=== PATIENT | female | born 1990 | race Hispanic/Latino ===

== ENCOUNTER 2016-12-28 09:38 | Inpatient (IN) | payer MEDICAID ==
[~2016-12-28] VITALS: Ht 132.1 cm; Wt 78.5 kg
[~2016-12-28 09:38] MED LIST: ASCO500T8 PO; Docusate Sodium PO; FERR-74 PO; Ibuprofen PO; OMEP20TA86 PO; Oxycodone/Acetaminophen PO
[2016-12-28] MEDS ORDERED: Oxytocin 30 Units/500 mL LR 30 UNITS in IV Premix 1 EACH IV PRN ×2 (11:05→12:20)
[2016-12-28] MEDS ORDERED: Sodium Chloride LOK Flush 10 mL Syringe IVFLUSH PRN (12:20)
[2016-12-28] MEDS ORDERED: Methylergonovine 0.2 mg/mL Inj IM PRN (12:20)
[2016-12-28] MEDS ORDERED: Carboprost 250 mCg/mL Inj IM PRN (12:20)
[2016-12-28] MEDS ORDERED: Oxytocin 10 Unit/mL Inj IM PRN (12:20)
[2016-12-28] MEDS ORDERED: Hemorrhage Kit, Post Partum XX ONE (12:20)
[2016-12-28] MEDS: Lactated Ringer's 1,000 ML IV SCH ×2 (12:26→17:28)
[2016-12-28 12:27] LABS: Mean Corpuscular Hemoglobin 30.1 pg (27.0-35.0); Mean Corpuscular Volume 90.3 fL (81-100)
--- NOTE | 2016-12-28 17:04 | HP ---
[address] [address] HISTORY AND PHYSICAL PATIENT: LASHAE FONTANEZ : 1990 MR#: [id number] ADMIT: 12/28/2016 JOB ID: [id number] DATE OF ADMISSION: 12/28/2016 ADMISSION DIAGNOSIS: Spontaneous rupture of membranes with trial of labor after section. HISTORY OF PRESENT ILLNESS: The patient is 26 years old, 2, para 1-0-0-1, at 38 weeks and 5 days gestational age by six week ultrasound who had a gush of fluid leaking from her vagina this morning. ROM Plus test was positive in triage. Admitted for confirmed spontaneous rupture of membranes. The patient consented for trial of labor after . complicated with the following. 1. History of prior , primary low transverse , for chorioamnionitis and nonreassuring heart tracing by Dr. Chaparro. 2. Elevated A1C at intake. One hour glucose challenge test was 116 at 27 weeks. Size larger than dates. Last ultrasound on December 24, 2016 showed estimated weight of 3380 g, 62nd percentile, amniotic fluid 12.5, average gestational age 37 weeks and 4 days. Appropriate growth. The patient denied any vaginal bleeding. Reports uterine contractions. Reports movements. PAST OBSTETRICAL HISTORY: In 2013, primary low transverse for nonreassuring heart tracing and chorioamnionitis at 41 weeks and the current . PAST GYNECOLOGIC HISTORY: Normal history of normal Pap smears. No history of STDs. PAST MEDICAL HISTORY: Gallstones. PAST SURGICAL HISTORY: section x1. ALLERGIES: No known drug allergies. MEDICATIONS: 1. vitamins. 2. Metronidazole recently prescribed by Dr. Mcnair. SOCIAL HISTORY: Denied any alcohol consumption. Denied any drugs of abuse. Denied any cigarette smoking. FAMILY HISTORY: Maternal brother with autism. LABORATORIES: O-positive, antibody negative, rubella immune, serology nonreactive, hepatitis B surface antigen negative. HIV nonreactive. One hour glucose challenge test is 116 at 27 weeks gestational age. GC and chlamydia cultures negative. Quad screen negative. GBS cultures negative on December 16, 2016. PHYSICAL EXAMINATION: Patient is alert, oriented x3. Vital signs are 104/58 for blood pressure, respirations are 18, pulse is 81, temperature 36.5 degrees centigrade. Heart is regular rate and rhythm. Positive S1, S2. Lungs clear to auscultation bilaterally. Abdomen: Gravid uterus, nontender. Positive bowel sounds. Lower extremities: No calf tenderness appreciated bilaterally. Cervical exam: 1 cm dilated, cervix 60% effaced, -3 station, vertex presentation, posterior cervix, medium consistency. Kay score was 4. * heart tracing baseline of 135 beats per minute, positive accelerations, no decelerations, moderate variability, reactive tracing. Procedure: Cervical ripening balloon was inserted after informed consent obtained verbally from the patient. 80 cc of normal saline injected in uterine balloon and 80 cc injected in the vaginal balloon. The patient tolerated the balloon insertion well. ASSESSMENT AND PLAN: The patient is 26 years old, 2, para 1-0-0-1, at 38 weeks 5 days gestational age by six week ultrasound, admitted for trial of labor after section and spontaneous rupture of membranes. 1. Induction of labor started with cervical ripening balloon that was inserted without difficulty. 2. Will consider Pitocin to follow. 3. Category 1 heart tracing. Continue external monitoring and consider internal monitoring as needed. 4. GBS cultures negative. 5. Discussed intrapartum analgesia options with the patient. She is still considering her options. Patient's consents were signed with Dr. Mcnair in the office and discussed again today at admission and patient confirmed her desire for trial of labor after . JESSEE
[2016-12-28] MEDS: Lactated Ringer's 1,000 ML IV PRN (21:32)
[2016-12-28] MEDS ORDERED: Lactated Ringer's 500 ML IV ONE (22:28)
[2016-12-28] MEDS ORDERED: Lactated Ringer's 1,000 ML IV SCH (22:28)
--- NOTE | 2016-12-28 22:28 | PCM.HPANE ---
Patient Data Surgeon Admitting Provider:Sky Suero MD Attending Provider:Sky Suero MD Primary Care Physician:Herb Mcnair MD Other Provider:Louis Tinoco Anesthesia Reason for Visit Term Early Labor TERM EARLY LABOR Ht/WT & BMI Body Mass Index Allergies Coded Allergies: No Known Allergies (Verified Allergy, Unknown, 02/03/14) Past Anesthesia History Anesthesia History: Denies:: Abnormal Airway, Anesthesia Reactions, Difficult Intubation, Fam Anesthesia Reaction, Fam Malignant Hypertherm, Malignant Hyperthermia Diabetes History Hx Diabetes?: No Medications Hypertension Medication: No Home Meds Incl Beta Sharita: No Active Scripts [Oxycodone/Acetaminophen] (Percocet 5/325 mg)1 TAB TABLET No Conflict Check1-2 Tab PO Q3H PRN For Pain #40 TABLET Prov:Sky Suero MD 01/14/14 [Ibuprofen] (Motrin)800 MG TABLET No Conflict [id number] Mg PO Q6H PRN For Pain # 40 TABLET Prov:Sky Suero MD 01/14/14 Ferrous Sulfate (Feosol)325 Mg Gstlkc050 Mg PO BID #60 TABLET Prov:Sky Suero MD 01/14/14 [Docusate Sodium] (Colace)100 MG CAPSULE No Conflict Agamm234 Mg PO TIDWM PRN For Constipation #60 CAPSULE Prov:Sky Suero MD 01/14/14 Ascorbic Acid (Vitamin C)500 Mg Tcbbqy194 Mg PO BID #60 TABLET Prov:Sky Suero MD 01/14/14 Reported Medications Omeprazole-Expunged Drug, Do Not Renew! 20 Mg Tablet.dr20 Mg PO DAILY 06/02/12 History History of ENT Problems?: No HEENT History: Denies:: Abnormal Airway Cataracts Difficult Intubation Dysphagia Glaucoma Hearing Problem Sinus Problem TMJ Denture Type: None Teeth Condition: Within Normal Limits Hx of Heart Problems?: No Cardiovascular History: Denies:: Congestive Heart Failure Hypertension Hx of Respiratory Problem?: No Respiratory History: Denies:: Tuberculosis Hx Neurologic Problems?: No Hx of GI Problems?: Yes Gastrointestinal History: Positive for:: Gastroesphageal Reflux Heartburn Hx of Problems?: No Female Hx: Positive for:: Currently Hx Musculoskeletal Problems?: No Hx of Psycho/Social Problems?: No Hx Surgeries?: Yes () Hx Any Other Health Problems?: No History Blood Transfusions: Denies:: Blood Transfuse Reaction Blood Transfusions Hx Diabetes: No Hx Alcohol Use: NoHx Substance Use: No Smoking Status: Never Smoker Have You Smoked inLast 12 mo: No Stop/Bang Treated for Sleep Apnea?: No Do You Have a CPAP Machine?: No GM Risk Assessment: Low Risk, <3 Yes Risk Assessment Category Category 1A: Patient has history of documented sleep apnea, and HAS NOT received any narcotic, sedative or anesthesia administration during this stay. Category 1B: Patient has history of documented sleep apnea, and HAS received any narcotic , sedative or anesthesia administration during this stay Category 2: Patient has SUSPECTED Obstructive Sleep Apnea, and HAS received any narcotic , sedative or anesthesia administration during this stay. Category 3: Patient has SUSPECTED Obstructive Sleep Apnea and HAS NOT received narcotic, sedative or anesthesia administration during this stay. Category 4: Outpatient in Procedural Areas with known sleep apnea or who screen positive for High Risk via the STOP/BANG questionnaire. Exam Exam General Appearance: Oriented X3 HEENT/AIRWAY: MP 2 Lungs: Normal Air Movement Heart: Regular Rate/Rhythm Meds/Labs/Diagnostics Admission Meds Current Medications Lactated Ringer's (Lr) 1,000 ml @ 125 mls/hr Q8H IV Last administered on t 17:28; Start 12/28/16 at 11:01 Labs Test 12/28/16 12:00 White Blood Count 9.1th/mm3 (3.8-10.1) Red Blood Count 4.62mil/mm3 (3.90-5.20) Hemoglobin 13.9g/dL (12.0-15.6) Hematocrit 41.7% (35.0-46.0) Mean Corpuscular Volume 90.3fL (81-100) Mean Corpuscular Hemoglobin 30.1pg (27.0-35.0) Mean Corpuscular Hemoglobin Concent 33.3% (32.0-37.0) Red Cell Distribution Width 14.9% (12.3-15.4) Platelet Count 129bil/L (150-400) Plan Impression Patient chart reviewed, patient interviewed and anesthestic plan with risks, benefits, and alternatives discussed, and informed consent obtained. ASA Physical Status: ASA2 Mod Systemic Disease Anesthetic Plan: Epidural Bene/Risks/Altern/Consents: Yes HP Complete Prior to Induction: Yes Vic Rios MD December 28, 2016 22:28
[2016-12-28] MEDS ORDERED: EPHEDrine Sulfate 50 mg/mL Inj IVPUSH PRN (22:30)
[2016-12-28] MEDS ORDERED: Ondansetron 2 mg/mL 2 mL Inj IVPUSH PRN (22:30)
[2016-12-28] MEDS ORDERED: Atropine 1 mg/10 mL (Code) Syringe IVPUSH PRN (22:30)
[2016-12-28] MEDS ORDERED: fentaNYL 2 mCg/mL-Bupiv 0.125% 100 ML EPIDURAL SCH (22:30)
[2016-12-28] MEDS ORDERED: Phenylephrine/NS-PF 100 mCg/mL 5 mL Syringe IVPUSH PRN (22:30)
[2016-12-28] MEDS ORDERED: fentaNYL 2 mCg/mL-Bupivicaine 0.125% 100 mL Premix EPIDURAL ONE (22:30)
[2016-12-29] MEDS: Lactated Ringer's 1,000 ML IV PRN (01:49)
[2016-12-29 07:55] LABS: Mean Corpuscular Hemoglobin 30.3 pg (27.0-35.0); Mean Corpuscular Volume 91.2 fL (81-100)
[2016-12-29] MEDS: Ampicillin 2,000 mg/100 mL NS Minibag Plus IV SCH ×6 (08:22→22:30)
[2016-12-29] MEDS: Clindamycin Inj 900 MG in IV Premix 1 EACH IV SCH ×3 (08:30→23:36)
[2016-12-29] MEDS ORDERED: Dexamethasone 4 mg/mL Inj ONE (08:34)
[2016-12-29] MEDS: GENTAMICIN IV SCH (08:45)
[2016-12-29] MEDS: DEXTROSE 5% IV SCH (08:45)
--- NOTE | 2016-12-29 09:07 | PCM.PNOBIP ---
Subjective Date of Service December 29, 2016 Group B Strep Results: Negative Rubella: Immune Blood Type: O (positive) Labs Laboratory Tests 12/29/16 07:38: White Blood Count 16.4, Red Blood Count 4.42, Hemoglobin 13.4, Hematocrit 40.3, Mean Corpuscular Volume 91.2, Mean Corpuscular Hemoglobin 30.3, Mean Corpuscular Hemoglobin Concent 33.3, Red Cell Distribution Width 15.1, Platelet Count 115, Hematology Comments Exam Vital Signs Vital Signs Contraction frequency in minutes: MVUs: Vital Signs: VS reviewed, concerns are (T 38.3 , 38.5 ) Heart Tracings Heart Tones Baseline 165 bpm minimal variability, early decelerations no spontaneous acceleration positive scalp accelerations. Tocometry/IUPC Contraction frequency in minutes: MVUs: Sterile Vaginal Exam Cervical Dilation: 7 cms (-8) Cervical Effacement: 100 % Station: 0 Exam General: Alert, Oriented X3 OB Intrapartum Assessment/Plan Assessment 26 Y/O at 38w6d 1. TOLAC 2. PROM since 8 am 12/28/16 induced with garcia bulb balloon, removed after 12 hours on Pitocin 3. Chrioamniontitis (maternal fever, maternal leukocytosis and tachycardia ) Offered section at this time for category 2 FHT. Patient declined. Continue close heart tones monitor and will proceed with repeat CD if FHT dose not improve after fluid bolus, antibiotics and Tylenol. with lang interpreter R/ B/A of section were discussed with patient details. Herb Mcnair MD December 29, 2016 08:48
[2016-12-29] MEDS ORDERED: Sodium Citrate-Citric Acid 15 mL Solution PO SCH (10:00)
[2016-12-29] MEDS ORDERED: fentaNYL-PF 50 mCg/mL 2 mL Inj ONE ×2 (10:10→11:08)
[2016-12-29] MEDS ORDERED: Morphine PF 1 mg/mL 10 mL Inj ONE (10:11)
--- NOTE | 2016-12-29 11:33 | PCM.HPANE ---
Patient Data Surgeon Admitting Provider:Sky Suero MD Attending Provider:Sky Suero MD Primary Care Physician:Herb Mcnair MD Other Provider:Louis Tinoco Anesthesia Reason for Visit Term Early Labor TERM EARLY LABOR Ht/WT & BMI Body Mass Index Allergies Coded Allergies: No Known Allergies (Verified Allergy, Unknown, 02/03/14) Past Anesthesia History Anesthesia History: Denies:: Abnormal Airway, Anesthesia Reactions, Difficult Intubation, Fam Anesthesia Reaction, Fam Malignant Hypertherm, Malignant Hyperthermia Diabetes History Hx Diabetes?: No Medications Hypertension Medication: No Home Meds Incl Beta Sharita: No Active Scripts [Oxycodone/Acetaminophen] (Percocet 5/325 mg)1 TAB TABLET No Conflict Check1-2 Tab PO Q3H PRN For Pain #40 TABLET Prov:Sky Suero MD 01/14/14 [Ibuprofen] (Motrin)800 MG TABLET No Conflict [id number] Mg PO Q6H PRN For Pain # 40 TABLET Prov:Sky Suero MD 01/14/14 Ferrous Sulfate (Feosol)325 Mg Jptlzc530 Mg PO BID #60 TABLET Prov:Sky Suero MD 01/14/14 [Docusate Sodium] (Colace)100 MG CAPSULE No Conflict Hbbui050 Mg PO TIDWM PRN For Constipation #60 CAPSULE Prov:Sky Suero MD 01/14/14 Ascorbic Acid (Vitamin C)500 Mg Aofnxp644 Mg PO BID #60 TABLET Prov:Sky Suero MD 01/14/14 Reported Medications Omeprazole-Expunged Drug, Do Not Renew! 20 Mg Tablet.dr20 Mg PO DAILY 06/02/12 History History of ENT Problems?: No HEENT History: Denies:: Abnormal Airway Cataracts Difficult Intubation Dysphagia Glaucoma Hearing Problem Sinus Problem TMJ Denture Type: None Teeth Condition: Within Normal Limits Hx of Heart Problems?: No Cardiovascular History: Denies:: Congestive Heart Failure Hypertension Hx of Respiratory Problem?: No Respiratory History: Denies:: Tuberculosis Hx Neurologic Problems?: No Hx of GI Problems?: Yes Hx of Problems?: No Female Hx: Positive for:: Currently Hx Musculoskeletal Problems?: No Hx of Psycho/Social Problems?: No Hx Surgeries?: Yes () Hx Any Other Health Problems?: No History Blood Transfusions: Denies:: Blood Transfuse Reaction Blood Transfusions Hx Diabetes: No Hx Alcohol Use: NoHx Substance Use: No Smoking Status: Never Smoker Have You Smoked inLast 12 mo: No Stop/Bang Treated for Sleep Apnea?: No Do You Have a CPAP Machine?: No GM Risk Assessment: Low Risk, <3 Yes Risk Assessment Category Category 1A: Patient has history of documented sleep apnea, and HAS NOT received any narcotic, sedative or anesthesia administration during this stay. Category 1B: Patient has history of documented sleep apnea, and HAS received any narcotic , sedative or anesthesia administration during this stay Category 2: Patient has SUSPECTED Obstructive Sleep Apnea, and HAS received any narcotic , sedative or anesthesia administration during this stay. Category 3: Patient has SUSPECTED Obstructive Sleep Apnea and HAS NOT received narcotic, sedative or anesthesia administration during this stay. Category 4: Outpatient in Procedural Areas with known sleep apnea or who screen positive for High Risk via the STOP/BANG questionnaire. Low Risk, <3 Yes Exam Exam General Appearance: Alert, Oriented X3 HEENT/AIRWAY: MP 2 Lungs: Normal Air Movement Heart: Exam Unremarkable Meds/Labs/Diagnostics Admission Meds Current Medications Miscellaneous 1 1 ONCE ONCE XX Last administered on 12/28/16 08:00; Start at 12:20; Stop 12/28/16 at 12:40; Status DC Lactated Ringer's 500 ml @ 0 mls/hr Q0M ONCE IV Last administered on 12/28/16 23:43; Start 12/28/16 at 22:28; Stop 12/28/16 at 22:32; Status DC Lactated Ringer's (Lr) 1,000 ml @ 125 mls/hr Q8H IV Last administered on 08:23; Start 12/28/16 at 22:28; Stop 12/29/16 at 22:29 Acetaminophen 650 mg 650 mg ONCE ONCE PO Last administered on 12/29/16 08:00 ; Start 12/29/16 at 08:00; Stop 12/29/16 at 08:01; Status DC Ampicillin Sodium 2000 mg/Sodium Chloride 100 ml @ 200 mls/hr Q6 IV Last administered on 12/29/16 08:22; Start 12/29/16 at 08:30 Gentamicin Sulfate/Dextrose/ Water (Gentamicin Inj/ D5W) 105 ml @ 105 mls/hr Q24H IV Last administered on 12/29/16 08:45; Start 12/29/16 at 08:30 Acetaminophen (Tylenol) 650 mg STK-MED ONCE PO Last administered on 12/29/16 09:40; Start 12/29/16 at 07:58; Stop 12/29/16 at 08:01; Status DC Labs Test 12/29/16 07:38 White Blood Count 16.4th/mm3 (3.8-10.1) Red Blood Count 4.42mil/mm3 (3.90-5.20) Hemoglobin 13.4g/dL (12.0-15.6) Hematocrit 40.3% (35.0-46.0) Mean Corpuscular Volume 91.2fL (81-100) Mean Corpuscular Hemoglobin 30.3pg (27.0-35.0) Mean Corpuscular Hemoglobin Concent 33.3% (32.0-37.0) Red Cell Distribution Width 15.1% (12.3-15.4) Platelet Count 115bil/L (150-400) Hematology Comments Urine Random Creatinine 39mg/dL (16-392) Urine Random Total Protein 17mg/dL (0-15) Urine Protein/Creatinine Ratio 0.44 (0-200) Sodium Level 138mEq/L (134-144) Potassium Level 3.5mEq/L (3.5-5.2) Chloride Level 103mEq/L (97-108) Carbon Dioxide Level 17mmol/L (18-29) Blood Urea Nitrogen 9mg/dL (6-20) Creatinine 0.49mg/dL (0.57-1.00) Estimat Glomerular Filtration Rate 222mL/min (>59) Glucose Level 80mg/dL (60-99) Uric Acid 7.7mg/dL (2.6-7.2) Calcium Level 8.7mg/dL (8.5-10.1) Total Bilirubin 0.3mg/dL (0.0-1.2) Aspartate Amino Transf (AST/SGOT) 28U/L (0-50) Alanine Aminotransferase (ALT/SGPT) 22U/L (0-32) Alkaline Phosphatase 195U/L (25-150) Total Protein 5.8g/dL (6.4-8.4) Albumin 2.8g/dL (3.4-5.0) Plan Impression Patient chart reviewed, patient interviewed and anesthestic plan with risks, benefits, and alternatives discussed, and informed consent obtained. ASA Physical Status: ASA2 Mod Systemic Disease Anesthetic Plan: Epidural Bene/Risks/Altern/Consents: Yes HP Complete Prior to Induction: Yes Bob Blair MD December 29, 2016 11:33
[2016-12-29] MEDS ORDERED: fentaNYL-PF 50 mCg/mL 2 mL Inj IVPUSH PRN (11:35)
[2016-12-29] MEDS ORDERED: EPHEDrine Sulfate 50 mg/mL Inj IVPUSH PRN (11:35)
--- NOTE | 2016-12-29 12:29 | PCM.ANEP1 ---
Post Anesthesia Phase 1 PACU Phase 1 Assessment Anesthetic Administered: Epidural Level of Alertness: Awake, talking Pain: No Nausea or Vomiting: No Cardiovascular Function and Hy: Yes Oxygen Delivery: Room Air Lungs: Normal Air Movement Complications: No Follow up Care: No Bob Blair MD December 29, 2016 12:29
[2016-12-29] MEDS ORDERED: LANOlin HPA 7 Gm Ointment TOPICAL PRN (12:35)
[2016-12-29] MEDS ORDERED: Sodium Chloride LOK Flush 10 mL Syringe IVFLUSH PRN (12:35)
[2016-12-29] MEDS ORDERED: hydrOXYzine Pamoate 25 mg Capsule PO PRN (12:35)
[2016-12-29] MEDS ORDERED: Methylergonovine 0.2 mg/mL Inj IM PRN (12:35)
[2016-12-29] MEDS ORDERED: Ondansetron 2 mg/mL 2 mL Inj IVPUSH PRN (12:35)
[2016-12-29] MEDS ORDERED: Oxytocin 30 Units/500 mL LR 30 UNITS in IV Premix 1 EACH IV PRN (12:35)
[2016-12-29] MEDS ORDERED: Acetaminophen IV 1,000 MG in IV Premix 1 EACH IV PRN (12:35)
[2016-12-29] MEDS ORDERED: Hemorrhage Kit, Post Partum XX ONE (12:35)
[2016-12-29] MEDS ORDERED: Oxytocin 10 Unit/mL Inj IM PRN (12:35)
[2016-12-29] MEDS ORDERED: Ondansetron 8 mg ODT Tablet PO PRN (12:35)
[2016-12-29] MEDS ORDERED: diphenhydrAMINE 50 mg Capsule PO PRN (12:35)
[2016-12-29] MEDS ORDERED: Promethazine 50 mg Rectal Suppository RECTAL PRN (12:35)
[2016-12-29] MEDS ORDERED: Carboprost 250 mCg/mL Inj IM PRN (12:35)
[2016-12-29] MEDS: Lactated Ringer's 1,000 ML IV SCH (18:26)
[2016-12-29 19:56] VITALS: BP 116/58; PULSE 73; RESP 16
[2016-12-30] MEDS: oxyCODONE-Acetamin 5-325 mg Tablet PO PRN ×5 (00:19→20:02)
--- NOTE | 2016-12-30 00:25 | OP ---
[address] [address] OPERATIVE REPORT PATIENT: LASHAE FONTANEZ : 1990 MR#: [id number] ADMIT: 12/28/2016 JOB ID: [id number] DATE OF SURGERY: 12/29/2016 PREOPERATIVE DIAGNOSIS(ES): 1. Intrauterine at 38 weeks and 6 days. 2. Premature rupture of membranes. 3. Chorioamnionitis. 4. Nonreassuring heart tones remote from delivery. 5. Failed trial of labor after section. POSTOPERATIVE DIAGNOSIS(ES): 1. Intrauterine at 38 weeks and 6 days. 2. Premature rupture of membranes. 3. Chorioamnionitis. 4. Nonreassuring heart tones remote from delivery. 5. Failed trial of labor after section. PROCEDURE: Repeat section for nonreassuring heart tones remote from delivery. SURGEON: Herb Mcnair MD. UNDERWEAR FINISHER: Sky Suero MD. Sand Cleaning Machine Operator was required for retraction, exposure and safe delivery of the . COMPLICATIONS: None. ESTIMATED BLOOD LOSS: 800 mL. INTRAVENOUS FLUIDS: Please review anesthesia records. URINE OUTPUT: Urine was clear at the end of the procedure. INDICATION: This is a 26 years old 2, para 1-0-0-1, at 38 weeks and 6 days gestation, presented with premature rupture of membranes. Time of rupture was 8 a.m. December 28, 2016. Fluid was clear with no signs of labor at presentation. Church bulb balloon was inserted in the cervix for mechanical dilatation, that was deflated 12 hours later. Pitocin was started. Made cervical change up to 7 cm that was noted at 4:49 a.m. on December 29, 2016. No cervical change was noted over the next five hours, but during that time Pitocin was turned off and contraction were inadequate secondary to category 2 heart tones tracing with variable heart tone decelerations. Pitocin was restarted after two hours of expectant management with no cervical change. heart tones were still at category 2 tracing with tachycardia, where baseline was in the 165s to 170s with minimal variability and late decelerations. Maternal temperature noted of 38.5 max and maternal white cell count increased from 9 at admission to 16. Maternal tachycardia was noted shortly before the section, maternal heart rate was 124 and up to 139. Chorioamnionitis was diagnosed and patient was started on ampicillin and gentamicin, and was given Tylenol and observed for changes in heart tones. Fluids were given, oxygen was given, and heart tones remained in category 2 tracing. The patient was offered a repeat section. The patient declined and desired to continue with conservative management and intrauterine resuscitation. After further observation, late heart tone decelerations were noted and section was re-offered. The patient agreed to proceed with section. Risks, benefits and alternatives of section were reviewed with the patient in details with the presence of facility maintenance supervisor. All questions were answered. Informed consent was signed. During the observation period and intrauterine resuscitation period, scalp stim was positive with positive 10X10 accelerations. FINDINGS: Normal uterus, tubes and ovaries. Meconium-stained amniotic fluid thick. Cephalic presented fetus was high in the pelvis, delivered without difficulty. The serosal surface of the uterus and the peritoneum noted to be edematous which could be a sign of inflammation. There was a defect in the left rectus muscle upon entry to the abdominal cavity that was repaired. Infant weight is 3882 g, equivalent to 8 pounds 9 ounces. Apgars 9 and 9 at one and five minutes respectively. PROCEDURE: After informed consent was obtained, the patient was taken to the operation room. Epidural anesthesia was bolused to adequate levels. The patient was placed in supine position with left lateral tilt. Pelvic preparation was performed. Abdominal prep was performed. The patient was draped in usual sterile manner. After confirming adequacy of anesthesia, a Pfannenstiel skin incision was made at the level of the previous incision was approximately four Fingerbreadth above the symphysis pubis. and was carried down to the fascia with Bovie cautery. The initial fascial incision was made with a scalpel and was extended bilaterally with curved Woo scissors. The inferior aspect of the fascial layer was grasped on either side of the midline with Chintan clamps and the underlying rectus muscle was dissected with blunt and sharp dissection. Then, attention turned to the superior aspect of the fascia that was grasped in either side of the midline and the fascia was dissected off the underlying rectus muscle with blunt and sharp dissection. The rectus muscle was noted to be attenuated with a defect in the right rectus muscle, lower edge, that was repaired at the time of closure. The rectus muscle was in the midline. The peritoneum was identified and area clear of vascularity and underneath viscera that was grasped with hemostat and entered sharply with Metzenbaum scissors. The initial incision was extended bilaterally with blunt and sharp dissection. The bladder blade was placed to protect the bladder. A moderate adhesion was noted at the lower uterine segment where some omentum was adherent to the parietal peritoneum. The uterine incision was made in the lower uterine segment and was extended bilaterally with curved digit. head was elevated out of the pelvis without difficulty and delivered with a moderate amount of fundal pressure without difficulty. No nuchal cord was noted. Delayed cord clamp was performed as infant was vigorous and vice president medical affairs was present in the OR. Infant was handed off to the vice president medical affairs. Placenta was delivered with simple expression intact with a three-vessel cord and was sent to Pathology for further evaluation. The uterus was exteriorized and cleared of any remaining clots and debris. The uterine incision was closed with running interlocking fashion using 0-Vicryl. A second imbricating layer using 0-Vicryl was performed with good hemostasis. Examination of the right corner of the incision revealed some bleeding. A epsggj-rq-rgzpf stitch was placed using 2-0 chromic and two more vfuiwu-os-wqpan stitches were placed more medially to ensure hemostasis. A hematoma was noted in the left corner of the uterine incision that was controlled with soxbwi-rb-thjte stitch with no further expansion. The posterior cul-de-sac was irrigated and cleared of any remaining clots and debris. The uterus was placed back into the abdominal cavity. The hematoma at the left corner of the incision was examined and hemostasis was ensured, and no further expansion of the hematoma was noted. The uterine incision was revisited and no further bleeding was noted. FloSeal was applied at the incision line. The initial defect that was noted on the left lower edge of the rectus muscle upon entry was approximated with hkqgay-mr-uthih stitches using 2-0 chromic. Then, the rectus muscles were approximated in the midline with simple interrupted stitches of 2-0 chromic. The subfascial layer was examined and no bleeding was noted. Then, the fascia was closed with running 0-Vicryl. The subcutaneous layer was approximated with interrupted stitches of 4-0 Vicryl. The skin was closed in subcuticular fashion using 4-0 Monocryl. Steri-Strips were applied. All instrument, needle, sponge counts were correct x2. The patient tolerated the procedure well. The patient did receive 900 mg of clindamycin prior to the skin incision. Will continue antibiotics for additional 24 hours after last fever. Herb Feliciano MD was present and scrubbed for the entire procedure. Performed entire delivery. Cord blood and gases were collected. Placenta was sent to Pathology for further evaluation. . VAD
[2016-12-30] MEDS: Lactated Ringer's 1,000 ML IV SCH ×3 (03:56→20:34)
[2016-12-30] MEDS: Ampicillin 2,000 mg/100 mL NS Minibag Plus IV SCH ×4 (03:58→10:15)
[2016-12-30] MEDS: Clindamycin Inj 900 MG in IV Premix 1 EACH IV SCH ×2 (05:31→11:08)
[2016-12-30] MEDS: Ascorbic Acid 500 mg Tablet PO SCH (07:43)
[2016-12-30 07:46] LABS: Mean Corpuscular Hemoglobin 30.7 pg (27.0-35.0)
[2016-12-30] MEDS: GENTAMICIN IV SCH (08:22)
[2016-12-30] MEDS: DEXTROSE 5% IV SCH (08:22)
--- NOTE | 2016-12-30 13:26 | PCM.PNOBPP ---
Subjective Date of Service December 30, 2016 Post : Repeat Ceserean Delivery Lochia: Normal Pain Management: PO pain meds Gastrointestinal: Good Appetite, No N/V Postop Activity: Ambulating Independently Group B Strep Results: Negative Rubella: Immune Blood Type: O (positive) Labs Laboratory Tests 12/29/16 07:38: Hematology Comments 12/30/16 07:25: White Blood Count 24.4, Red Blood Count 3.00, Hemoglobin 9.2, Hematocrit 27.6, Mean Corpuscular Volume 92.0, Mean Corpuscular Hemoglobin 30.7, Mean Corpuscular Hemoglobin Concent 33.3, Red Cell Distribution Width 15.1, Platelet Count 116 Exam Vital Signs Vital Signs afbrile >24 hours, last fever before delivery. Vital Signs: VS reviewed, stable Exam Abdomen: Fundus firm Lungs: Clear to Auscultation Heart: Regular Rate/Rhythm, Normal S1, Normal S2 General: Alert, Oriented X3 Surgical Wound : Incision General Appearence: Steri Strips, Sutures, Intact, Well Approximated, Incision Healing, No Erythemia, No Discharge, No Inflammatory Changes OB Post Assessment/Plan Assessment 26 Y S/P RCD Failed TOLAC for NRFHT remote from delivery. chorioamnionitis resolved Pain Management: D/C antibiotics Post plan: Other (anticipate discharge home tomorrow. ) Herb Mcnair MD December 30, 2016 13:26
[2016-12-31] MEDS: oxyCODONE-Acetamin 5-325 mg Tablet PO PRN ×3 (02:38→11:06)
[2016-12-31] MEDS: Ascorbic Acid 500 mg Tablet PO SCH (07:21)
[2016-12-31] MEDS ORDERED: DOCU-41 PO (09:01)
[2016-12-31] MEDS ORDERED: Lanolin TOPICAL (09:01)
[2016-12-31] MEDS ORDERED: Ascorbic Acid PO (09:01)
[2016-12-31] MEDS ORDERED: FERR-74 PO (09:01)
[2016-12-31] MEDS ORDERED: OXYC1TAB24 PO (09:01)
[2016-12-31] MEDS ORDERED: IBUP-1827 PO (09:02)
--- NOTE | 2016-12-31 09:05 | PCM.DIOB ---
Obstetrical Disch Instruction Date of Service: December 31, 2016 Dates of Hospitalization Date of Hospital Admission December 28, 2016 at 09:50 Providers Admitting Physician: Sky Suero MD Primary Care Physician: Herb Mcnair MD Attending Physician: Sky Suero MD Discharge Diagnosis Discharge Diagnosis Status post repeat section. Anemia. Problems: Diet Discharge Diet: No restrictions Activity Discharge Activity-General: Pelvic Rest for 6 weeks (no sex, tampon nor douching), Balance rest and activity, No lifting >10 pounds for 4-6 weeks Dressing and Incisional Care Dressing Care: Allow Steri Stripes to fall off Hygiene: May shower, Wash incision with soap & water (then dry well), DO NOT soak incision under water, NO bathtub, hot tub or whirlpool Follow Up Plan Follow-up Provider (F9): Herb Mcnair MD Follow-up appointment: Weeks (Two) Call your provider for: Fever or Chills, Shortness of breath, Heavy vaginal bleeding, Heavy bleeding, Epigastric pain, Excessive constipation, Vaginal discomfort, Red painful breasts, Other (Headache, change in vision, nausea or vomiting, leg swelling, pain or redness. ) Herb Mcnair MD December 31, 2016 09:05
--- NOTE | 2016-12-31 09:06 | PCM.DC.OB ---
Obstetrical Discharge Summary Date of Service December 31, 2016 Date of hospital admission December 28, 2016 at 09:50 Date of Discharge: December 31, 2016 Providers Admitting Physician: Sky Suero MD Primary Care Physician: Laura Mcnair MD Attending Physician: Sky Suero MD Hospital Course: This is a 26 year-old 2 , now para2 Discharge Diagnosis Status post repeat low transverse section after failed trail of labor after section for non reassuring heart tones and chorioamnionitis, on 12/29/2016.2. Anemia. Chorioamnionitis, afbrile since delivery. COMPLICATED WITH: 1. History of prior , primary low transverse , for chorioamnionitis and nonreassuring heart tracing by Dr. Chaparro. 2. Elevated A1C at intake. One hour glucose challenge test was 116 at 27 weeks. Size larger than dates. Last ultrasound on December 24, 2016 showed estimated weight of 3380 g, 62nd percentile, amniotic fluid 12.5, average gestational age 37 weeks and 4 days. OUTCOME: weight is 3882 g, equivalent to 8 pounds 9 ounces. Apgars 9 and 9 at one and five minutes respectively. DISCHARGE DAY EXAM: Postoperative day number 2, patient is ambulating, tolerating regular diet without nausea or vomiting and voiding without difficulty. Pain was well controlled. No chest pain, no headache or change in vision. VS: Vital Signs (Last) Date Time Temp Pulse Resp B/P Pulse Ox O2 Delivery O2 Flow Rate FiO2 12/31/16 7:30 36.6 94 18 128/67 100% Room Air General: Alert, Oriented [id number]: Clear to Auscultation, Clear to PercussionHeart: Regular Rate/Rhythm, Normal S1, Normal [id number]: Fundus firmSurgical Wound: Incision General Appearance: Steri Strips, Sutures, Intact , Well Approximated, Incision Healing, No Erythema, No DischargeExtremities: No tenderness/swelling, Edema 1+Lochia: normal.LABS: labs: Labs: Laboratory Tests 72 Hours Test 12/29/16 07:38 12/30/16 07:25 White Blood Count 16.4th/mm3 (3.8-10.1) 24.4th/mm3 (3.8-10.1) Red Blood Count 4.42mil/mm3 (3.90-5.20) 3.00mil/mm3 (3.90-5.20) Hemoglobin 13.4g/dL (12.0-15.6) 9.2g/dL (12.0-15.6) Hematocrit 40.3% (35.0-46.0) 27.6% (35.0-46.0) Mean Corpuscular Volume 91.2fL (81-100) 92.0fL (81-100) Mean Corpuscular Hemoglobin 30.3pg (27.0-35.0) 30.7pg (27.0-35.0) Mean Corpuscular Hemoglobin Concent 33.3% (32.0-37.0) 33.3% (32.0-37.0) Red Cell Distribution Width 15.1% (12.3-15.4) 15.1% (12.3-15.4) Platelet Count 115bil/L (150-400) 116bil/L (150-400) Hematology Comments Urine Random Creatinine 39mg/dL (16-392) Urine Random Total Protein 17mg/dL (0-15) Urine Protein/Creatinine Ratio 0.44 (0-200) Sodium Level 138mEq/L (134-144) Potassium Level 3.5mEq/L (3.5-5.2) Chloride Level 103mEq/L (97-108) Carbon Dioxide Level 17mmol/L (18-29) Blood Urea Nitrogen 9mg/dL (6-20) Creatinine 0.49mg/dL (0.57-1.00) Estimat Glomerular Filtration Rate 222mL/min (>59) Glucose Level 80mg/dL (60-99) Uric Acid 7.7mg/dL (2.6-7.2) Calcium Level 8.7mg/dL (8.5-10.1) Total Bilirubin 0.3mg/dL (0.0-1.2) Aspartate Amino Transf (AST/SGOT) 28U/L (0-50) Alanine Aminotransferase (ALT/SGPT) 22U/L (0-32) Alkaline Phosphatase 195U/L (25-150) Total Protein 5.8g/dL (6.4-8.4) Albumin 2.8g/dL (3.4-5.0) Disposition: home. Discharge Condition: stable. Diet Discharge Diet: No restrictions Activity Discharge Activity-General: Pelvic Rest for 6 weeks (no sex, tampon nor douching), Balance rest and activity, No lifting >10 pounds for 4-6 weeks Dressing and Incisional Care Dressing Care: Allow Steri Stripes to fall off Hygiene: May shower, Wash incision with soap & water (then dry well), DO NOT soak incision under water, NO bathtub, hot tub or whirlpool Follow Up Plan Follow-up Provider (F9): Laura Mcnair MD Follow-up appointment: Weeks (Two) Call your provider for: Fever or Chills, Shortness of breath, Heavy vaginal bleeding, Heavy bleeding, Epigastric pain, Excessive constipation, Vaginal discomfort, Red painful breasts, Other (Headache, change in vision, nausea or vomiting, leg swelling, pain or redness. ) . ([Lanolin]) 2 APPLIC/GM OINT 1 APPLIC TOPICAL DIRECTED PRN PRN for breast care Prescribed by: LAURA MCNAIR MD ([Ascorbic Acid]) 500 MG TABLET 500 MG PO BID Prescribed by: LAURA MCNAIR MD Docusate Sodium (Colace) 100 Mg Capsule 100 MG PO BID Prescribed by: LAURA MCNAIR MD Ferrous Sulfate (Feosol) 325 Mg Tablet 325 MG PO BIDWM Prescribed by: LAURA MCNAIR MD Ibuprofen (Ibuprofen) 600 Mg Tablet 600 MG PO QID PRN PRN For Pain Prescribed by: LAURA MCNAIR MD oxyCODONE-Acetaminophen 5-325 mg (oxyCODONE-Acetaminophen 5-325 mg) 1 Each Tablet 1-2 TAB PO Q4H PRN PRN For Pain Prescribed by: MD Tabby GRAHAM Omaima A MD December 31, 2016 09:06
--- NOTE | 2016-12-31 15:35 | PATH ---
SURGICAL PATHOLOGY Attending Physician:Herb Mcnair CASE STATUS: Signed Out PATIENT NAME: LASHAE FONTANEZ PID: [id number] : 1990 DATE COLLECTED:12/29/2016 00:00 SPECIMEN: Placenta CLINICAL HISTORY: , REPEAT FOR INTOLERANCE OF LABOR. MAT TEMP 38.5, LMP 02/24/2016 1). PLACENTA FINAL DIAGNOSIS: 1.PLACENTA: HUNG PLACENTA WITH ACUTE CHORIOAMNIONITIS AND FUNISITIS. FURCATE INSERTION OF UMBILICAL CORD. ICD10 CODE O41.1 O43.8 GROSS DESCRIPTION: The specimen is received in formalin, labeled with the patient's name and consists of an intact partial circumvallate placenta and includes placental disc (601 g, 17.5 x 17.3 x 3.5 cm), umbilical cord (length-5.2 cm, diameter-1.5 x 0.6 cm) and membranes. The membranes are ruptured at the free edge of the placenta and are thick and opaque. The umbilical cord has a furcate insertion 7.5 cm from the edge of the placenta and contains 3 vessels. The surface is smooth and shiny with no evidence of meconium. The maternal surface is dark maroon with normal cotyledon formation. The placental disc is spongy with no hematomas, infarcts, nodules, masses, or lesions. Section code: (A-B) edge of placenta with membranes, bisected; (C) umbilical cord; (D-E, F-G) placenta, 2 bisected full thickness sections. 12/30/16 JM MICRO DESCRIPTION: See diagnosis. ICD-9 CODES: CPT CODES: 1: 34768 Electronically Signed Out Luna Valencia MD [facility] Pathology [facility] [address], [place] [address] Technical component performed at [facility] [address], [place], [address]
== END 2016-12-31 13:30 | disposition home or self-care (01) | DRG 540 ==
LOC: FBCO 09:38 → FBC 09:50
PROVIDERS: ADMIT Obstetrics & Gynecology; ATTEND Obstetrics & Gynecology
PROC: 10D00Z1 Extraction of Products of Conception, Low, Open Approach (ICD-10-PCS; principal; 2016-12-29 10:21)
DX: O76 Abnormality in fetal heart rate and rhythm complicating labor and delivery (principal); O41.1230 Chorioamnionitis, third trimester, not applicable or unspecified; O42.02 Full-term premature rupture of membranes, onset of labor within 24 hours of rupture; Z3A.38 38 weeks gestation of pregnancy; Z37.0 Single live birth; O34.211 Maternal care for low transverse scar from previous cesarean delivery; O66.41 Failed attempted vaginal birth after previous cesarean delivery; O77.0 Labor and delivery complicated by meconium in amniotic fluid